=== PATIENT | female | born 2000 | race Caucasian/White ===

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

== ENCOUNTER → 2022-04-11 | Outpatient (CLI) | payer MEDICAID ==
[~2022-04-11] MED LIST changes: +OFLO5DRO33 OT
--- NOTE | 2022-04-11 10:32 | Diagnostic Imaging Report ---
INDICATION: anatomy survey TECHNIQUE: Multiple real-time grayscale images were obtained over the gravid uterus. COMPARISON: None FINDINGS: Single live intrauterine is in cephalic presentation. The cervix measures 5.3 cm in length. Placenta is anterior position and there is no previa. HERNÁN is normal at 12.05 cm. Maternal adnexa are not well-visualized due to advanced gestational age. The following anatomy is visualized and normal: Four-chamber heart, stomach, cerebellum, cisterna magna, cerebral ventricles, kidneys, umbilical cord insertion, urinary bladder, spine, bilateral lower extremities, bilateral upper extremities, face, profile, right ventricular outflow tract and left ventricular outflow tract. Biometrical measurements are as follows: Biparietal 4.78 cm, age 20 weeks 4 days. Head circumference 17.94 cm, age 20 weeks 3 days. Abdominal circumference 15.09 cm, age 20 weeks 3 days. Femur length 3.36 cm, age 20 weeks 4 days. Sonographic estimate age: 20 weeks 4 days. Sonographic estimated date of delivery: 08/25/2022. Estimated Weight: 353 gm (+/- 52 gm). LMP percentile: 44%. heart rate: 132 beats per minute. number: 1 of 1. IMPRESSION: 1. Single live intrauterine patency has normal anatomy survey. Dictated by: Dictated on workstation # [id number]
== END ==
LOC: RAD FS 07:40
PROVIDERS: ATTEND Nurse Practitioner Women's Health
DX: Z34.02 Encounter for supervision of normal first pregnancy, second trimester (principal)
CPT/HCPCS: 76805

== ENCOUNTER 2022-04-14 12:07 | Emergency (ER) | payer MEDICAID ==
[~2022-04-14] VITALS: Ht 175 cm; Wt 110.0 kg
[~2022-04-14 12:07] MED LIST changes: -OFLO5DRO33 OT
--- NOTE | 2022-04-14 12:16 | ED EENT ---
History of Present Illness General Chief Complaint: Ear Problems Stated Complaint: RT EAR PAIN History of Present Illness Date Seen by Provider: Apr 14, 2022 Time Seen by Provider: 12:14 Initial Comments 21 year-old female presents with right ear pain. Patient reports that she awoke today and has some bloody discharge. She went to urgent care and was prescribed amoxicillin this morning but did not feel that they had looked at her ear enough and wanted to have it reevaluated. Patient has a history of ear infections and ear tubes. Her last ear tube was put in when she was approximately 17. He denies any change in her hearing, fever, chills or other systemic complaints. Allergies and Home Medications Allergies Coded Allergies: No Known Drug Allergies (Unverified , 12/08/14) Patient Home Medication List Home Medication List Reviewed: Yes Hydrocodone/Acetaminophen (Lortab 5-325 mg Tablet) 1 Each Tablet, 1-2 TAB PO Q4- 6 PRN for PAIN Prescribed by: ZI RICE on 12/09/14 1323 Ofloxacin (Ofloxacin) 0.3 % Drops, 5 ML OT NEEDED Prescribed by: MANI CASTRO on 04/14/22 1259 Review of Systems Review of Systems Constitutional: no symptoms reported Eyes: No Symptoms Reported Ears: See HPI, Bloody Discharge Nose: no symptoms reported Mouth: no symptoms reported Respiratory: no symptoms reported Cardiovascular: no symptoms reported Past Fcdrxbd-Rtljys-Esbwir Hx Past Medical History Reproductive Disorders: No Female Reproductive Disorders: Denies Sexually Transmitted Disease: No HIV/AIDS: No Loss of Vision: Denies Hearing Impairment: Denies Adverse Reaction/Blood Tranf: No Physical Exam Vital Signs Vital Signs - First Documented 04/14/22 12:33 Temp 36.2 Pulse 80 Resp 16 B/P (MAP) 132/79 (96) Pulse Ox 98 O2 Delivery Room Air Height, Weight, BMI Height: 5'8.00" Weight: 150lbs. 0.0oz. [id number]; BMI Method: General Appearance: WD/WN, no apparent distress Ears: right ear TM perforation, right ear other (mild bloody discharge ) Cardiovascular: normal peripheral pulses, regular rate, rhythm Respiratory: lungs clear, normal breath sounds Gastrointestinal: non tender, soft Neurologic/Psychiatric: alert, oriented x 3 Skin: normal color, warm/dry Progress/Results/Core Measures Results/Orders Vital Signs/I&O 04/14/22 12:33 Temp 36.2 Pulse 80 Resp 16 B/P (MAP) 132/79 (96) Pulse Ox 98 O2 Delivery Room Air Progress Progress Note : Progress Note Patient with likely otitis media without rupture ear drum with some bloody discharge. Evaluation does not show any acute canal injury. She does have some mild blood near what appears to be a ruptured tympanic membrane. Recommended that she fill her amoxicillin. I did also give her ofloxacin since it is safe with TM rupture. Discussed with him the need to be sure to keep water out of the ear and close follow-up with ENT. Patient will call ear nose throat specialist tomorrow morning to see about a follow-up towards [place] as asked where they would prefer to go. They are stable and discharged home. They should return to the ER if symptoms get worse or with any other concerns Departure Impression Primary Impression: Otitis media of right ear with rupture of tympanic membrane Additional Impression: Ear bleeding Qualified Codes: H92.21 - Otorrhagia, right ear Disposition: HOME, SELF-CARE Condition: Stable Departure-Patient Inst. Referrals: CHAN FORMAN MD (PCP) Primary Care Physician Patient Instructions: Ruptured Eardrum ED Add. Discharge Instructions: Please take already prescribed amoxicillin. Please call ENT first thing in the morning for a follow-up All discharge instructions reviewed with patient and/or family. Voiced understanding. Scripts Ofloxacin (Ofloxacin) 0.3 % Drops 5 ML OT NEEDED for 7 Days, #1 EACH Prov: MANI CASTRO DO 04/14/22 MANI CASTRO DO Apr 14, 2022 12:16
[2022-04-14 12:33] VITALS: BP 132/79
[2022-04-14] MEDS ORDERED: OFLO5DRO33 OT (12:59)
== END 2022-04-14 13:11 | disposition home or self-care (01) ==
LOC: EDUNIT# 12:07 → ER FS 12:10
DX: H66.91 Otitis media, unspecified, right ear (principal); H72.91 Unspecified perforation of tympanic membrane, right ear
CPT/HCPCS: 99284

== ENCOUNTER → 2022-07-29 | Outpatient (CLI) ==
[~2022-07-29] MED LIST changes: +OFLO5DRO33 OT
== END ==
LOC: LABNPT 16:35 → MERGE 16:35
PROVIDERS: ATTEND Obstetrics & Gynecology
DX: O13.9 Gestational [pregnancy-induced] hypertension without significant proteinuria, unspecified trimester (principal); Z3A.00 Weeks of gestation of pregnancy not specified
CPT/HCPCS: 82570; 84156

== ENCOUNTER 2022-08-01 11:03 | Outpatient (CLI) | payer MEDICAID ==
[~2022-08-01] VITALS: Ht 172.7 cm; Wt 117.7 kg
[2022-08-01 10:58] VITALS: BP 135/78
[2022-08-01 11:09] VITALS: BP 124/79
[2022-08-01 11:14] VITALS: BP 135/78
[2022-08-01 11:51] LABS: BASOPHILS % (AUTO) 0 % (0-10); EOSINOPHILS % (AUTO) 0 % (0-10); HEMATOCRIT 32 % (35-52); HEMOGLOBIN 10.9 g/dL (11.5-16.0); LYMPHOCYTES # (AUTO) 1.8 10^3/uL (1.0-4.0); LYMPHOCYTES % (AUTO) 18 % (12-44); MEAN CORPUSCULAR HEMOGLOBIN 29 pg (25-34); MEAN CORPUSCULAR HGB CONC 34 g/dL (32-36); MEAN CORPUSCULAR VOLUME 85 fL (80-99); MEAN PLATELET VOLUME 11.1 fL (9.0-12.2); MONOCYTES % (AUTO) 10 % (0-12); NEUTROPHILS # (AUTO) 7.4 10^3/uL (1.8-7.8); NEUTROPHILS % (AUTO) 72 % (42-75); PLATELET COUNT 268 10^3/uL (130-400); WHITE BLOOD COUNT 10.4 10^3/uL (4.3-11.0)
[2022-08-01 12:21] LABS: ALBUMIN 2.9 GM/DL (3.2-4.5); POTASSIUM 3.6 MMOL/L (3.6-5.0)
[2022-08-01 12:22] LABS: CALCIUM 8.6 MG/DL (8.5-10.1)
[2022-08-01 12:24] LABS: TOTAL PROTEIN 5.6 GM/DL (6.4-8.2)
[2022-08-01 12:25] LABS: BILIRUBIN,TOTAL 0.3 MG/DL (0.1-1.0)
[2022-08-01 12:27] LABS: CREATININE SERUM 0.67 MG/DL (0.60-1.30)
[2022-08-01 12:30] LABS: URIC ACID 4.4 MG/DL (2.6-7.2)
--- NOTE | 2022-08-02 09:04 | Physician Query-Final Dx ---
Clinic Account Progress/Dx Physician Query: Please give diagnosis Please include # weeks gestation Date of Service Aug 01, 2022 at 11:03 WHEAT,MayAug 02, 2022 09:04
== END 2022-08-01 13:00 | disposition home or self-care (01) ==
LOC: LDRP 11:03 → WSo 11:03
PROVIDERS: ATTEND Family Medicine
DX: Z34.90 Encounter for supervision of normal pregnancy, unspecified, unspecified trimester (principal); Z3A.00 Weeks of gestation of pregnancy not specified
CPT/HCPCS: 36415; 80053; 82570; 83615; 84156; 84550; 85025; 99213

== ENCOUNTER → 2022-08-05 | Outpatient (CLI) | LOC: LABNPT 09:23 | PROVIDERS: ATTEND Obstetrics & Gynecology | DX: O13.9 Gestational [pregnancy-induced] hypertension without significant proteinuria, unspecified trimester (principal); Z3A.00 Weeks of gestation of pregnancy not specified | CPT/HCPCS: 82570; 84156 ==

== ENCOUNTER 2022-08-12 06:00 | Inpatient (IN) | payer MEDICAID ==
[2022-08-12] VITALS (56 sets, daily range): BP systolic 119–157; BP diastolic 60–103
[~2022-08-12] VITALS: Ht 175 cm; Wt 117.4 kg
[2022-08-12 06:40] LABS: BASOPHILS % (AUTO) 0 % (0-10); EOSINOPHILS % (AUTO) 1 % (0-10); HEMATOCRIT 34 % (35-52); HEMOGLOBIN 11.5 g/dL (11.5-16.0); LYMPHOCYTES % (AUTO) 23 % (12-44); MEAN CORPUSCULAR HEMOGLOBIN 28 pg (25-34); MEAN CORPUSCULAR HGB CONC 34 g/dL (32-36); MEAN CORPUSCULAR VOLUME 83 fL (80-99); MEAN PLATELET VOLUME 11.5 fL (9.0-12.2); MONOCYTES # (AUTO) 0.7 10^3/uL (0.0-1.0); MONOCYTES % (AUTO) 9 % (0-12); NEUTROPHILS # (AUTO) 5.7 10^3/uL (1.8-7.8); NEUTROPHILS % (AUTO) 68 % (42-75); PLATELET COUNT 257 10^3/uL (130-400); WHITE BLOOD COUNT 8.5 10^3/uL (4.3-11.0)
[2022-08-12 06:42] LABS: BILIRUBIN,URINE NEGATIVE (NEGATIVE); CLARITY,URINE CLEAR; COLOR,URINE YELLOW; GLUCOSE, URINE (UA) NEGATIVE (NEGATIVE); KETONES,URINE NEGATIVE (NEGATIVE); LEUKOCYTE ESTERASE ,URINE NEGATIVE (NEGATIVE); NITRITE,URINE NEGATIVE (NEGATIVE); PROTEIN,URINE 1+ (NEGATIVE)
[2022-08-12] MEDS ORDERED: LACTATED RINGERS 1,000 ML IV SCH ×2 (06:45→09:45)
[2022-08-12 07:00] LABS: BACTERIA,URINE NEGATIVE /HPF; RBC,URINE RARE /HPF
[2022-08-12] MEDS ORDERED: fentaNYL 2 mcg/ml BUPIVA 0.125 100 ML ONE (07:14)
--- NOTE | 2022-08-12 07:35 | History & Physical-OB ---
OB - Chief Complaint & HPI Date/Time Date of Admission: Date of Admission: Aug 12, 2022 at 06:08 Date seen by a Provider: Aug 12, 2022 Time Seen by a Provider: 07:30 Chief Complaint/History OB-Reason for Admission/Chief: Induction of Labor Hx : 2 Hx Para: 1 Expected Date of Delivery: Aug 26, 2022 Gestational Age in Weeks: 38 Gestational Age in Days: 0 Indication for induction: medical complication Admission Nurse Assessment Rev: Yes History of Labs B neg Antibody neg RI RPR NR HBsAg NR HC NR HIV NR GC neg GBS faith Allergies and Home Medications Allergies Coded Allergies: No Known Drug Allergies (Unverified , 12/08/14) Patient Home Medication List Home Medication List Reviewed: Yes No Active Prescriptions or Reported Meds OB - History Hx of Present Care: Yes Ultrasounds: Normal mid trimester US Obstetrical Complications: Gestational Hypertension Medical Complications: None Delivery History Hx Blood Disorders: No Adverse Rxn to Tranfusion: No Patient Past Medical History Hx of PreE GHTN Social History/Family History 2nd Hand Smoke Exposure: No Immunizations Influenza Vaccine Up-to-Date: No; Not Current Hepatitis A: Yes Hepatitis B: Yes OB - Admission Exam Physical Exam Vitals: Vital Signs 08/12/22 08/12/22 06:11 06:53 Temp 36.3 Pulse 95 Resp 82 B/P (MAP) 141/85 (103) Pulse Ox 97 O2 Delivery Room Air HEENT: NCAT Heart: Rhythm Normal Lungs: Clear Abdomen: Gravid Extremities: Normal Reflexes: Normal Cervical Dilatation: 3cm Effacement: 75% Station: -1 Membranes: Intact Heart Rate: 130's Accelerations: Accelerations Present Decelerations: No Decelerations Short Term Variability: Present Clean Out Driller Helper Variability: Average (6-25) Contractions on Admission: 6-10 Minutes Apart Intensity: Mild Labs Laboratory Tests Test 08/12/22 06:01 08/12/22 06:20 Range/Units Urine Color YELLOW Urine Clarity CLEAR Urine pH 6.0 5-9 Urine Specific [place] 1.025 H 1.016-1.022 Urine Protein 1+ H NEGATIVE Urine Glucose (UA) NEGATIVE NEGATIVE Urine Ketones NEGATIVE NEGATIVE Urine Nitrite NEGATIVE NEGATIVE Urine Bilirubin NEGATIVE NEGATIVE Urine Urobilinogen 0.2 < = 1.0 MG/DL Urine Leukocyte Esterase NEGATIVE NEGATIVE Urine RBC (Auto) TRACE-I H NEGATIVE Urine RBC RARE /HPF Urine WBC NONE /HPF Urine Crystals NONE /LPF Urine Bacteria NEGATIVE /HPF Urine Casts NONE /LPF Urine Mucus NEGATIVE /LPF Urine Culture Indicated NO White Blood Count 8.5 4.3-11.0 10^3/uL Red Blood Count 4.06 3.80-5.11 10^6/uL Hemoglobin 11.5 11.5-16.0 g/dL Hematocrit 34 L 35-52 % Mean Corpuscular Volume 83 80-99 fL Mean Corpuscular Hemoglobin 28 25-34 pg Mean Corpuscular Hemoglobin Concent 34 32-36 g/dL Red Cell Distribution Width 12.9 10.0-14.5 % Platelet Count 257 130-400 10^3/uL Mean Platelet Volume 11.5 9.0-12.2 fL Immature Granulocyte % (Auto) 0 % Neutrophils (%) (Auto) 68 42-75 % Lymphocytes (%) (Auto) 23 12-44 % Monocytes (%) (Auto) 9 0-12 % Eosinophils (%) (Auto) 1 0-10 % Basophils (%) (Auto) 0 0-10 % Neutrophils # (Auto) 5.7 1.8-7.8 10^3/uL Lymphocytes # (Auto) 2.0 1.0-4.0 10^3/uL Monocytes # (Auto) 0.7 0.0-1.0 10^3/uL Eosinophils # (Auto) 0.0 0.0-0.3 10^3/uL Basophils # (Auto) 0.0 0.0-0.1 10^3/uL Immature Granulocyte # (Auto) 0.0 0.0-0.1 10^3/uL OB - Assessment/Plan/Diagnosis Assessment Assessment: induction of labor Admission Dx 22 yo @ 38 weeks IOL for GHTN GBS neg Admission Status: Inpatient Order (span 2 midnights) Reason for Inpatient Admission: IOL at 38 weeks Plan Plan: Induction Induction Method: ELISHA KING DO Aug 12, 2022 07:35
[2022-08-12] MEDS: D5 LR IV SOLUTION 1,000 ML IV SCH ×2 (07:48→14:35)
[2022-08-12] MEDS ORDERED: ONDANSETRON 4 MG/2 ML (SDV) Z0FRAN IVP ONE (09:45)
[2022-08-12] MEDS ORDERED: ONDANSETRON 4 MG/2 ML (SDV) Z0FRAN IV PRN (09:45)
[2022-08-12] MEDS ORDERED: diphenhydrAMINE 50 MG/ML INJ (BENADRYL) IV PRN (09:45)
[2022-08-12] MEDS ORDERED: METOCLOPRAMIDE INJ 10 MG/2 ML (REGLAN) IV PRN (09:45)
[2022-08-12] MEDS ORDERED: fentaNYL 2 mcg/ml BUPIVA 0.125 100 ML EPI SCH (09:45)
[2022-08-12] MEDS ORDERED: NALOXONE 0.4 MG/ML 1 ML (NARCAN) VIAL IV PRN ×3 (09:45→16:30)
[2022-08-12] MEDS: OXYTOCIN PRE-MIX DRIP 500 ML IV SCH ×2 (10:32→15:49)
[2022-08-12] MEDS ORDERED: LIDOCAINE 1% INJ 20 ML VIAL IJ PRN (12:00)
[2022-08-12] MEDS ORDERED: CATHETER FLUSH 10 ML SYR IV SCH ×2 (14:00→22:00)
[2022-08-12] MEDS ORDERED: METHYLERGONOVINE 0.2 MG/ML (METHERGINE) AMP ONE (15:26)
[2022-08-12] MEDS ORDERED: METHYLERGONOVINE 0.2 MG/ML (METHERGINE) AMP IM ONE ×2 (15:30→16:30)
[2022-08-12] MEDS ORDERED: CARBOPROST (HEMABATE) 250 MCG/ML AMP IM ONE ×2 (15:33→15:45)
--- NOTE | 2022-08-12 16:25 | OB Labor & Delivery Record ---
L&D History Date of Service Date of Service: Aug 12, 2022 History Expected Date of Delivery: Aug 26, 2022 Gestational Age in Weeks: 38 Hx : 2 Hx Para: 1 Complications Events: Routine care Operative Indications (Cesarea: N/A-Vaginal Delivery Intrapartal Events: None L&D Stage1 Stage One Onset of Labor - Date: Aug 12, 2022 Monitors and Tracing Monitor Mode: External Heart Rate: 120 Monitor Accelerations: Uniform Monitor Decelerations: Variable Station: 0 Longterm Variability: Average (6-10) Short Term Variability: Present Presentation: Vertex Vital Signs VS - Last 72 Hours, by Label 08/12/22 08/12/22 08/12/22 08/12/22 06:10 06:11 06:53 08:00 Temp 36.3 36.3 36.4 Pulse 95 95 72 Resp 20 18 82 20 B/P (MAP) 131/90 (104) 141/85 (103) 142/97 (112) Pulse Ox 98 97 97 O2 Delivery Room Air Room Air Room Air Room Air 08/12/22 08/12/22 08/12/22 08/12/22 08:20 08:25 08:30 08:35 Pulse 105 90 85 99 Resp 20 20 20 20 B/P (MAP) 136/86 (103) 123/79 (94) 125/75 (92) 123/77 (92) Pulse Ox 98 97 97 97 O2 Delivery Room Air Room Air Room Air Room Air 08/12/22 08/12/22 08/12/22 08/12/22 08:40 08:42 08:47 08:50 Pulse 93 90 90 86 Resp 20 20 20 20 B/P (MAP) 128/77 (94) 128/60 (82) 119/76 (90) 130/83 (99) Pulse Ox 97 98 98 O2 Delivery Room Air Room Air Room Air Room Air 08/12/22 08/12/22 08/12/22 08/12/22 08:53 08:58 09:02 09:06 Temp 36.3 Pulse 92 107 82 81 Resp 20 20 20 20 B/P (MAP) 128/73 (91) 122/76 (91) 126/77 (93) 133/84 (100) O2 Delivery Room Air Room Air Room Air Room Air 408/12/22 08/12/22 08/12/22 09:20 09:25 09:30 09:40 Pulse 97 87 74 93 Resp 20 20 20 20 B/P (MAP) 121/75 (90) 124/77 (93) 134/86 (102) 131/85 (100) O2 Delivery Room Air Room Air Room Air Room Air 08/12/22 08/12/22 08/12/22 08/12/22 10:00 10:15 10:25 10:42 Pulse 84 83 86 78 Resp 20 20 20 18 B/P (MAP) 130/82 (98) 132/84 (100) 131/83 (99) 141/87 (105) Pulse Ox 99 98 98 98 O2 Delivery Room Air Room Air Room Air Room Air 08/12/22 08/12/22 08/12/22 08/12/22 10:57 11:13 11:28 11:45 Pulse 71 81 82 76 Resp 18 18 18 18 B/P (MAP) 148/92 (110) 141/83 (102) 142/85 (104) 133/84 (100) Pulse Ox 99 99 99 98 O2 Delivery Room Air Room Air Room Air Room Air 08/12/22 08/12/22 08/12/22 08/12/22 12:00 12:15 12:30 12:45 Pulse 78 84 78 71 Resp 18 18 18 18 B/P (MAP) 137/85 (102) 142/86 (104) 134/83 (100) 146/80 (102) Pulse Ox 98 98 98 99 O2 Delivery Room Air Room Air Room Air Room Air 08/12/22 08/12/22 08/12/22 08/12/22 13:00 13:15 13:30 13:45 Pulse 72 74 76 81 Resp 18 18 18 18 B/P (MAP) 138/90 (106) 139/82 (101) 136/76 (96) 134/71 (92) Pulse Ox 98 98 98 98 O2 Delivery Room Air Room Air Room Air Room Air 08/12/22 08/12/22 08/12/22 14:00 14:15 14:30 Temp 36.7 Pulse 76 81 71 Resp 18 18 18 B/P (MAP) 153/85 (107) 136/86 (103) 140/84 (102) Pulse Ox 98 97 99 O2 Delivery Room Air Room Air Room Air Rupture of Membranes Spontaneous Ruture of Membrane: No Amniotic Membrane Rupture Time: 09 Amniotic Membrane Fluid Desc.: Clear Vaginal Bleeding Description: Normal Show Induction/Anesthesia Epidural Cath Placement - Time: 822 L&D Stage2 Monitors and Tracing Monitor Mode: External Heart Rate: 120 Multiple Launch Rocket System Crewmember Variability: Average (6-10) Short Term Variability: Present Position: Right Occiput Anterior Presentation: Vertex Cord Descript/Complications Cord Vessel Description: 3 Vessels Delivery Type Infant Delivery Method: Spontaneous Vaginal Episiotomy/Perineal Laceration Laceraction(s)/Extensions: Yes Episiotomy Description: Vaginal Extension/lac Location Modifier: Right Degree (describe repair) right labial laceration repaired using 3-0 rapide in usual fashion. Condition of Delivery 1 minute Comment: 9 5 minute Comment: 9 Notes Live female infant weight 7lbs 7oz Condition of Infant Condition of Infant: Living Exam: No Observed Abnormalities Resuscitation Resuscitation: N/A - Spontaneous Resp L&D Stage3 Stage Three Stage III Date: Aug 12, 2022 Pictocin Pitocin Administration mu/min: 4 Pitocin ml/hr: 4 Pitocin Administration Comment: 30 mu wide open after delivery of placenta Placenta Delivery Placenta Delivery: Spontaneous Delivery Summary Summary Estimated blood loss (mL): 400 Attending at delivery: Elisha Grullon DO Condition of Delivery Examined: Cervix Examined, Uterus Explored Post Hemorrhage: No Intervention Required 0.2 mg metheringe given IM/ 250 mcg carboprost given IM as well. Good response in bleeding and uterine tone. Condition of Mother stable Condition of (s) stable ELISHA GRULLON DO Aug 12, 2022 16:25
[2022-08-12] MEDS ORDERED: HYDROcodone/APAP 5 MG/325 MG (LORTAB) TAB PO PRN (16:30)
[2022-08-12] MEDS ORDERED: WITCH HAZEL(TUCKS) 40 EA JAR TOP PRN (16:30)
[2022-08-12] MEDS ORDERED: TETANUS,DIPTH,PERTUSS P/F (BOOSTRIX) 0.5 ML VIAL IM ONE (16:30)
[2022-08-12] MEDS ORDERED: OXYTOCIN PRE-MIX DRIP 500 ML IV SCH (16:30)
[2022-08-12] MEDS ORDERED: DIBUCAINE 1% OINTMENT 28 GM TUBE TOP PRN (16:30)
[2022-08-12] MEDS ORDERED: MEASLES,MUMPS,RUBELLA 1 EA INJ SQ ONE (16:30)
[2022-08-12] MEDS ORDERED: BENZOCAINE/MENTHOL (DERMOPLAST) 56 ML CAN TP PRN (16:30)
[2022-08-12] MEDS: IBUPROFEN 600 MG (MOTRIN) TAB PO SCH ×2 (16:55→23:01)
[2022-08-12] MEDS: DOCUSATE SODIUM 100 MG (COLACE) CAP PO SCH (20:26)
[2022-08-13 04:53] VITALS: BP 125/78
[2022-08-13] MEDS: IBUPROFEN 600 MG (MOTRIN) TAB PO SCH ×3 (04:53→16:59)
[2022-08-13 06:11] LABS: BASOPHILS % (AUTO) 0 % (0-10); EOSINOPHILS % (AUTO) 0 % (0-10); HEMATOCRIT 25 % (35-52); HEMOGLOBIN 8.5 g/dL (11.5-16.0); LYMPHOCYTES # (AUTO) 2.3 10^3/uL (1.0-4.0); LYMPHOCYTES % (AUTO) 20 % (12-44); MEAN CORPUSCULAR HEMOGLOBIN 28 pg (25-34); MEAN CORPUSCULAR HGB CONC 34 g/dL (32-36); MEAN CORPUSCULAR VOLUME 83 fL (80-99); MEAN PLATELET VOLUME 11.6 fL (9.0-12.2); MONOCYTES # (AUTO) 0.8 10^3/uL (0.0-1.0); MONOCYTES % (AUTO) 8 % (0-12); NEUTROPHILS % (AUTO) 71 % (42-75); PLATELET COUNT 205 10^3/uL (130-400); WHITE BLOOD COUNT 11.2 10^3/uL (4.3-11.0)
[2022-08-13] MEDS ORDERED: PRENATAL VITAMIN 1 EA TAB PO SCH (07:00)
[2022-08-13 09:00] VITALS: BP 128/78
[2022-08-13] MEDS ORDERED: FERROUS SULF 325 MG (IRON) TAB PO SCH (09:00)
[2022-08-13] MEDS: DOCUSATE SODIUM 100 MG (COLACE) CAP PO SCH (09:01)
--- NOTE | 2022-08-13 09:15 | Anesthesia-Regional Post-Op ---
Regional Patient Condition Mental Status: Alert, Oriented x3 Circulation: Same as Pre-Op Headache: Absent Sensation: Full Recovery Motor Block: Absent Post Op Complications Complications None Follow Up Care/Instructions Patient Instructions None needed. Anesthesia/Patient Condition Patient is doing well, no complaints, stable vital signs, no apparent adverse anesthesia problems. No complications reported per nursing. RUBI GANDARA CRNA Aug 13, 2022 09:15
[2022-08-13 10:48] VITALS: BP 111/74
--- NOTE | 2022-08-13 11:09 | Postpartum Progress Note ---
Note Note Day # 1 Subjective: Patient is without complaints. Ambulating, voiding. Tolerating a regular diet without nausea or vomiting. Normal lochia. Pain is well controlled with oral pain medications. Objective: Physical Exam: General - Alert and oriented, no apparent distress Abdomen - Soft, appropriately tender to palpation, non-distended, fundus firm at umbilicus Extremities - no edema, negative Cammy's bilaterally Assessment: PPD 1 NVD GHTN Plan: Routine care. Encourage breast feeding. Encourage ambulation. Ferrous sulfate supplementation. Plan for discharge tomorrow Vitals - Labs Vital Signs - I&O Vital Signs Date Time Temp Pulse Resp B/P (MAP) Pulse Ox O2 Delivery O2 Flow Rate FiO2 08/13/22 10:48 36.8 75 18 111/74 (86) Room Air 08/13/22 09:00 36.8 80 18 128/78 (95) 98 Room Air 08/13/22 04:53 36.8 84 18 125/78 (94) 98 Room Air 08/12/22 23:51 37.0 76 18 129/79 (96) 98 Room Air 08/12/22 20:26 36.6 79 18 127/79 (95) 97 Room Air 08/12/22 18:11 36.9 88 18 140/75 (96) Room Air 08/12/22 17:57 83 18 148/75 (99) Room Air 08/12/22 17:42 97 18 154/95 (114) Room Air 08/12/22 17:27 37.1 85 18 139/83 (101) Room Air 08/12/22 17:12 96 18 128/61 (83) Room Air 08/12/22 16:57 36.8 86 18 143/67 (92) Room Air 08/12/22 16:26 36.8 84 18 137/87 (104) Room Air 08/12/22 16:11 37.2 86 18 137/89 (105) Room Air 08/12/22 15:56 37.5 90 18 137/99 (112) Room Air 08/12/22 15:48 36.8 93 18 136/88 (104) Room Air 08/12/22 15:41 37.1 85 18 138/91 (107) Room Air 08/12/22 15:27 37.4 91 18 135/90 (105) Room Air 08/12/22 15:15 109 18 157/103 (121) Room Air 08/12/22 15:00 36.8 75 18 151/91 (111) 100 Room Air 08/12/22 14:45 69 18 146/85 (105) 99 Room Air 08/12/22 14:30 71 18 140/84 (102) 99 Room Air 08/12/22 14:15 36.7 81 18 136/86 (103) 97 Room Air 08/12/22 14:00 76 18 153/85 (107) 98 Room Air 08/12/22 13:45 81 18 134/71 (92) 98 Room Air 08/12/22 13:30 76 18 136/76 (96) 98 Room Air 08/12/22 13:15 74 18 139/82 (101) 98 Room Air 08/12/22 13:00 72 18 138/90 (106) 98 Room Air 08/12/22 12:45 71 18 146/80 (102) 99 Room Air 08/12/22 12:30 78 18 134/83 (100) 98 Room Air 08/12/22 12:15 84 18 142/86 (104) 98 Room Air 08/12/22 12:00 78 18 137/85 (102) 98 Room Air 08/12/22 11:45 76 18 133/84 (100) 98 Room Air 08/12/22 11:28 82 18 142/85 (104) 99 Room Air 08/12/22 11:13 81 18 141/83 (102) 99 Room Air I & O 08/13/22 07:00 Intake Total 3100 ml Balance 3100 ml Labs Laboratory Tests 08/13/22 05:25: White Blood Count 11.2H, Red Blood Count 3.05L, Hemoglobin 8.5#L, Hematocrit 25L , Mean Corpuscular Volume 83, Mean Corpuscular Hemoglobin 28, Mean Corpuscular Hemoglobin Concent 34, Red Cell Distribution Width 12.7, Platelet Count 205, Mean Platelet Volume 11.6, Immature Granulocyte % (Auto) 0, Neutrophils (%) (Auto) 71, Lymphocytes (%) (Auto) 20, Monocytes (%) (Auto) 8, Eosinophils (%) (Auto) 0, Basophils (%) (Auto) 0, Neutrophils # (Auto) 8.0H, Lymphocytes # (Auto) 2.3, Monocytes # (Auto) 0.8, Eosinophils # (Auto) 0.0, Basophils # (Auto) 0.0, Immature Granulocyte # (Auto) 0.0 ELISHA GRULLON DO Aug 13, 2022 11:09
[2022-08-13 13:36] VITALS: BP 131/67
[2022-08-13 16:59] VITALS: BP 124/68
[2022-08-13] MEDS ORDERED: IBUP-844 PO (17:11)
[2022-08-13] MEDS ORDERED: FERR325T24 PO (17:11)
[2022-08-13] MEDS ORDERED: DIBU30OI TOP (17:11)
[2022-08-13] MEDS ORDERED: DOCU100C37 PO (17:11)
[2022-08-13] MEDS ORDERED: BENZ78AE5 TP (17:11)
--- NOTE | 2022-08-13 17:12 | Discharge Inst-Women's Service ---
Discharge Inst-Women's Serv Depart Medication/Instructions New, Converted or Re-Newed RX: Transmitted to Pharmacy Final Diagnosis PPD 1 NVD Problems Reviewed?: Yes Consults/Follow Up Additional Follow Up: Yes Orders/Referrals Dr. Grullon in 6 weeks Activity Activity: Activity as Tolerated Driving Instructions: No Driving for 1 Week NO SMOKING: NO SMOKING Nothing Inside Vagina: No Douching, No [place], No Tampons Diet Discharge Diet: No Restrictions Symptoms to Report to : Bleeding Excessive, Pain Increased, Fever Over 101 Degrees F, Vaginal Bleeding Increase, Questions/Concerns For Any Problems or Questions: Contact Your Physician ELISHA GRULLON DO Aug 13, 2022 17:12
== END 2022-08-13 18:58 | disposition home or self-care (01) | DRG 807 ==
LOC: LDRP 06:08
PROVIDERS: ADMIT Obstetrics & Gynecology; ATTEND Obstetrics & Gynecology
PROC: 10E0XZZ Delivery of Products of Conception, External Approach (ICD-10-PCS; principal; 2022-08-12)
PROC: 0HQ9XZZ Repair Perineum Skin, External Approach (ICD-10-PCS; 2022-08-12)
DX: O13.4 Gestational [pregnancy-induced] hypertension without significant proteinuria, complicating childbirth (principal); Z37.0 Single live birth; Z3A.38 38 weeks gestation of pregnancy; O70.0 First degree perineal laceration during delivery
CPT/HCPCS: 36415; 81000; 85025; 86780; 86850; 86900; 86901